=== PATIENT | female | born 1950 | race Caucasian/White ===

== ENCOUNTER → 2019-05-29 08:32 | Outpatient (BNVA) | payer MEDICARE, SELFPAY | PROVIDERS: Family Provider Family Medicine; PCP Family Medicine; Visit Provider Specialist | DX: M25.562 Pain in left knee (principal); Z47.1 Aftercare following joint replacement surgery; Z96.651 Presence of right artificial knee joint | CPT/HCPCS: 73560; 73565 ==

== ENCOUNTER → 2019-06-23 09:04 | Outpatient (BNVA) | payer MEDICARE, SELFPAY | PROVIDERS: Family Provider Family Medicine; PCP Family Medicine; Visit Provider Specialist | DX: M25.569 Pain in unspecified knee (principal); M17.0 Bilateral primary osteoarthritis of knee; Z96.651 Presence of right artificial knee joint | CPT/HCPCS: 81001; 87641 ==

== ENCOUNTER 2019-07-15 09:23 | Inpatient (IN) | payer MEDICARE, SELFPAY ==
[2019-07-03 11:16] VITALS: BMI 30.7
--- NOTE | 2019-07-03 11:23 | ECG_ITS ---
Measurements Intervals [place] Rate: 72 P: 54 KS: 133 QRS: 38 QRSD: 100 T: 62 QT: 358 QTc: 393 SINUS RHYTHM LOW QRS VOLTAGE IN PRECORDIAL LEADS [QRS DEFLECTION < 1.0 mV IN CHEST LEADS] Compared to ECG 01/02/2019 11:29:33 Low QRS voltage now present Sinus arrhythmia no longer present Electronically Signed On 07-03-2019 19:11:19 ALARM MECHANISM ADJUSTER by Esteban Knott M.D. [email or web address]
--- NOTE | 2019-07-03 13:22 | ANES.PREANE2 ---
Pre-Anesthetic Assessment Pre-Anesthetic Assessment: Height/Weight: Height 1.57 m Weight 76.204 kg Preop Diagnosis: Osteoarthritis left knee Proposed Procedure: Operation Date: 07/15/19 07:00 Proposed Procedures p Left Total Knee Arthroplasty 81314(Left) - Gisela Haque MD Familial anesthetic complications: none Social: Social History: No alcohol and No tobacco Exam: Pre-Anes Outpt Exam: alert, oriented x 3, clear to auscultation bilaterally and regular rate & rhythm Airway: Submandibular: WNL Cervical ROM: WNL MP: 1 Dentition: Other (teeth ok) History/ROS: No significant history except as noted Pulmonary: Pulmonary: None reported CV/HEM: CV/HEM: None reported : : None reported Hepatic: Hepatic: None reported GI: GI: GERD (occ) Metabolic: Metabolic: None reported Musc/skel: Musc/skel: OA/DJD Neuropsych: Neuropsych: TIA (2015) Anesthetic Plan: ASA status: 3 Anesthesia: Anesthesia Evaluation, Eval. for regional block (Left AC) and General Other: h/o PONV, need scop patch Risk of > 500 ml blood loss (7ml/kg in children): No PFSH Anesthesia PFSH: Medical History Hx of completed stroke Surgical History H/O breast surgery H/O: hysterectomy History of total right knee replacement Hx of cholecystectomy Family History Mother A-fib Hypertension Hyperlipidemia Sister Cancer Diabetes Stroke Grandmother Cancer Grandfather Cancer Father Hypertension Dementia Lung disease Family/Other Diabetes Brother Stroke Denies family history of CAD (coronary artery disease) Clotting disorder Psychiatric illness Chronic kidney disease (CKD) Suicide Anesthesia complication Bleeding disorder Family history of premature coronary artery disease Social History Smoking and tobacco status: never smoked Alcohol intake: never Current occupational status: employed Current occupation: Book keeper Data Anesthesia Cardiac Studies: No Data to Display
[2019-07-03 13:41] LABS: Basophils % 0.8 %; Eosinophils # 0.1 10^3/uL (0.0-0.8); Eosinophils % 2.4 %; Hematocrit 38.7 % (37.0-47.0); Hemoglobin 12.5 g/dL (11.5-15.3); Lymphocytes # 1.1 10^3/uL (0.8-4.8); Lymphocytes % 22.2 %; Mean Corpuscular HGB Conc 32.3 g/dL (30.0-36.0); Mean Corpuscular Hemoglobin 29.8 pg (28.0-34.0); Mean Corpuscular Volume 92.1 fL (81-99); Mean Platelet Volume 10.1 fL (7.4-10.4); Monocytes # 0.3 10^3/uL (0.2-0.9); Monocytes % 6.3 %; Neutrophils # 3.4 10^3/uL (1.8-7.7); Neutrophils % 68.1 %; Nucleated Red Blood Cells % 0 %; Platelet Count 256 10^3/cmm (130-400); Red Cell Distribution Width 13.8 % (12.1-15.1)
[2019-07-03 14:03] LABS: Blood Urea Nitrogen 12 mg/dL (8-23); Calcium 9.5 mg/dL (8.5-10.5); Carbon Dioxide 24 mmol/L (22-29); Chloride 102 mmol/L (98-107); Glomerular Filtration Rate 62.3 mL/min (90-130); Glucose 102 mg/dL (65-115); Osmolality Calculated 286 mOsm/kg (285-295); Sodium 140 mmol/L (136-145)
[2019-07-15] VITALS (21 sets, daily range): BP systolic 100–152; BP diastolic 67–90; PULSE 72–106; RESP 16–22; TEMP 36.3–37.2; O2SAT 96–100
[2019-07-15] MEDS: CELEcoxib 200 mg Capsule 400 MG PO (06:20)
[2019-07-15] MEDS: scopolamine 1.5 Patch 1 PATCH TRANSDERMA (06:20)
[2019-07-15] MEDS: sodium chloride 0.9% 1,000 ML 30 ML IV (06:24)
--- NOTE | 2019-07-15 06:49 | P.ANESUD_ITS ---
Pre-Anesthetic Update Pre-Anesthetic Assessment: Date of Surgery/Procedure: 07/15/19 Preop Melia gnosis: Osteoarthritis left knee Proposed Procedure: Operation Date: 07/15/19 07:00 Proposed Procedures p Left Total Knee Arthroplasty 23990(Left) - Gisela Haque MD Last Intake: Intake Last Liquid Date 07/14/19 Last Solid Date 07/14/19 Vitals: Temperature 97.7 F 07/15/19 05:41 Temperature Source Temporal Artery S can 07/15/19 05:41 Pulse Rate 74 07/15/19 05:41 Pulse Rhythm 07/15/19 05:41 Pulse Strength 3+ Normal 07/15/19 05:41 Respiratory Rate 18 07/15/19 05:41 Blood Pressure 152/90 07/15/19 05:41 Blood Pressure Josie n 110 07/15/19 05:41 Pulse Oximetry 98 07/15/19 05:41 Oxygen Delivery Me thod 07/15/19 05:41 Cardiac Studies: No Data to Display
--- NOTE | 2019-07-15 06:55 | W.PM.OPSUD ---
Surgery/Procedure H&P Update DATE OF PROCEDURE: July 15, 2019 DATE H&P PERFORMED: 06/23/19 H&P UPDATE INFORMATION: I have reviewed H&P completed within last 30 days, I have examined patient prior to procedure and [place] [facility] [place] PREOP DIAGNOSIS: Osteoarthritis left knee PLANNED PROCEDURE: Operation Date: 07/15/19 07:00 Proposed Procedures p Left Total Knee Arthroplasty 83863(Left) - Gisela Haque MD
[2019-07-15] MEDS: midazolam 1 mg/mL INJ 5 ML 5 MG IVP (06:59)
--- NOTE | 2019-07-15 06:59 | ANES.PROC ---
Anesthesia Procedures Procedure/Date: 07/15/19 Left adductor canal block Procedure Narrative: R&B's of left adductor canal block disc'd. Verbal and written consent obtained. Versed 2+1+1mg, Fentanyl 50ug. US utilized to identify left adductor canal space, JAMARI. Ropviciane 0.5% + Lido 2% with epi in 3:1 mixture in 5cc increments for a total of 40cc without problems/complications Nerve Block ^: Nerve Block 1: Main Anesthesia: general anesthesia Time Out Performed: Yes Consent: requested by attending/covering physician, from patient, risks and benefits reviewed and patient agrees to proceed Nerve block location: adductor canal Anesthesia monitors applied: pulse oximetry and oxygen Nerve block position: supine Anesthetic Used: lidocaine 2%, ropivicaine 0.5% and with epi Amount of anesthesia used (mL): 40 Ultrasound used to: other Nerve Stimulator Used?: No Interscalene/Femoral BLK: 2 stimuplex 22 g needle used for position and inplane approach and no vascular puncture identified Injection: neg aspiration of heme Patient Tolerated Procedure: well and no complications Complications: none
[2019-07-15] MEDS: fentaNYL 50 mcg/mL INJ 2mL 100 MCG IVP (07:00)
[2019-07-15] MEDS: ceFAZolin 1,000 mg SDV 1000 MG IRRIGATION ×2 (07:41)
[2019-07-15] MEDS: vancomycin 1,000 MG SDV 1000 MG XX (07:41)
--- NOTE | 2019-07-15 08:17 | SUR.OPER ---
Family Notified Of Patient's Status Via Phone.
--- NOTE | 2019-07-15 09:17 | W.PM.OPSUD ---
Surgery/Procedure H&P Update DATE OF PROCEDURE: July 15, 2019 DATE H&P PERFORMED: 07/14/19 H&P UPDATE INFORMATION: I have reviewed H&P completed within last 30 days, I have examined patient prior to procedure and H&P to be scanned into chart PREOP DIAGNOSIS: Osteoarthritis left knee PLANNED PROCEDURE: Operation Date: 07/15/19 07:00 Proposed Procedures p Left Total Knee Arthroplasty 66295(Left) - Gisela Haque MD
--- NOTE | 2019-07-15 09:41 | XR_ITS ---
WS: [id number] Left knee, 2 views, 07/15/2019 Clinical Data: s/p TKA Comparison: Left knee, 05/29/2019. Findings: The total left knee arthroplasty is in good position. The components are in good position. There are air-fluid levels in the knee from the recent surgery. There are anterior surgical alex. XR/XR knee LT 1-2V 31286 Impression: Left knee arthroplasty.
[2019-07-15] MEDS: fentaNYL 50 mcg/mL INJ 2mL IVP ×2 (09:45→09:50)
--- NOTE | 2019-07-15 09:48 | PM.OP ---
Operative Report Date of procedure: July 15, 2019 Pre-op Diagnosis: Osteoarthritis left knee Post-op diagnosis: same Post-op Findings: Severe degenerative osteoarthritis with osteophytes and significant varus deformity. Procedure Done: Left total knee arthroplasty utilizing the following components: The [place] triathlon total knee system with a size 3 posterior stabilized right press-fit femoral component, a size 3 Tritanium tibial component, press-fit, with a size 3 x 11 mm posterior stabilized insert, and an asymmetric 29 x 9 mm patella. Specimens removed/disposition: Bone, disposed of Pathology: none sent Surgeon: Gisela Haque Inside Sales Account Executive: [facility] OR technicians Anesthesia: General (intubated) Estimated blood loss (mL): 5 IV fluids (mL): 1,200 Urine output (mL): 200 Complications: None Findings: Severe degenerative osteoarthritis with large osteophytes. Varus deformity. Condition: stable Disposition: PACU (then to floor for postoperative rehabilitation, medical management, and pain management.) Brief History: This 69-year-old woman presented with complaints of severe left knee pain. She had large osteophytes circumferentially about the knee and severe degenerative osteoarthritic changes within all 3 compartments. After discussion, the patient wished to proceed with total knee arthroplasty. Procedure: The patient was brought to the operating theater, and after undergoing adequate general intubated anesthesia with supplemental regional block, the left lower extremity was prepped with Dura-Prep and draped in usual fashion following placement of a tourniquet high on the leg. The leg was then draped free. Following prepping and draping, the leg was exsanguinated, and the tourniquet was elevated to 300 mmHg for a total tourniquet time of 100 minutes. Prior to elevation of the tourniquet, but following exposure of the site of surgery, a surgical pause was performed. At the time of the surgical pause, we confirmed the site and side of surgery. Additionally, we confirmed the appropriate and timely administration of preoperative antibiotics, Ancef 2 g and transexemic acid 1 g. The availability of equipment was confirmed, and the patient's identity was verbalized as well. Following the surgical pause, an incision was made centering over the patella continuing proximally and distally as necessary to allow access to the knee joint. Dissection continued through skin and soft tissues using a scalpel. Hemostasis was obtained using electrocautery. The skin incision was followed by a median parapatellar arthrotomy. The leg was extended and the patella was everted. Following this, the leg was returned to flexed position. The distal femur was exposed and a drill hole was made in this for placement of the distal femoral jig. The distal femoral jig was set at 5? of valgus. The distal femoral cutting block was then placed in appropriate position, and an orly wing was used to confirm an appropriate amount of distal femur would be resected. The distal femoral resection was accomplished with 8 mm of bone being resected distally. After the distal femoral resection had been accomplished, the femur was measured and it measured a size 3. Medial lateral dimension also measured a size 3. A size 3 femoral cutting block was placed in position, and we were then able to accomplish the anterior, posterior and chamfer cuts. This jig was then removed and the notch guide was placed in position. With the notch guide in appropriate position, the notch was excised including resection of the anterior and posterior cruciate ligaments. This notch was to allow for the posterior stabilized femoral component. At this point, the femur was prepared and attention was directed to the proximal tibia. The posterior knee retractor was placed along with medial and lateral retractors. Further resection of the menisci were accomplished as we had better visualization. A complete meniscectomy was performed both medially and laterally with care being taken to protect the popliteus. Retractors were then placed so that the proximal tibia was well visualized. A drill hole was then made in the tibia for placement of the intramedullary guide. This guide was placed so that approximately 2 mm of bone would be resected from the deficient medial tibial plateau. The intramedullary guide was utilized supplemented with an extramedullary guide to assure appropriate alignment for the proximal tibial resection. The proximal tibial jig was then evaluated, pinned in position, and the proximal tibial resection was accomplished without difficulty. The jig was removed and the proximal tibia was measured. It measured a size 3. We then performed a trial reduction with an 9 mm insert into the size 3 tray. The femoral component was placed in position for the trial reduction, and the knee was placed through range of motion. The knee was felt to be slightly loose laterally compared to medially. Therefore, the medial release was accomplished and we were able to increase to an 11 mm insert. There was excellent stability with excellent varus-valgus alignment with appropriate patellar tracking. This was felt to be the appropriate size insert. There was full extension and flexion without lift off and the rotation of the tibia was marked. Alignment was checked from the hip to the ankle, and this was noted to be appropriate as well. Attention was then directed to the patella. The patella was measured with a caliper. We resected sufficient patella to leave approximately 14 mm of patella remaining. Measurements of the patella then indicated that a size asymmetric 29 mm x 9 mm was the appropriate patellar size. We then placed the jig to drill for the 3 pegs of the press-fit patella, and these drill holes were made without incident. A trial patella was then placed and the knee was placed through range of motion. The patella was noted to track nicely without evidence of subluxation. The femur was prepared for a press-fit femur by drilling 2 holes for the femoral pegs. All trial components were subsequently removed. The tibial tray was then pinned into position, and we broached the tibia for the stem of the tibial component. Subsequently, 4 drill holes were made for placement of the press-fit tibia. This was accomplished without difficulty. Care was taken to assure appropriate rotation of the tibia as well as appropriate position on the proximal tibia. The tibial tray was completely seated on the proximal tibia. Following broaching, the tibial guide was removed, and all surfaces were copiously irrigated. The surfaces were then dried and a bone plug was placed into the distal femur. Exparel was also injected at this point. The Tritanium tibia was impacted into position. The beaded femur was then impacted into position in a cementless fashion. The tibial insert was placed. The patella was pressed into position with a patellar clamp. The knee was irrigated with 20 mL of Betadine and 500 mL of normal saline, and this was allowed to remain in the knee for 3-4 minutes. The knee was then copiously irrigated and suctioned dry. Attention was then directed to closure. Closure was accomplished with 0 Vicryl in the fascial tissues, 2-0 Monocryl was used in the subcutaneous tissues, and the skin was closed with skin alex followed by Exofin. A sterile dressing was then placed consisting of Xeroform gauze, 4 x 4's, ABDs, sterile soft roll, and an Gigi wrap. The patient was returned the Recovery Room in a satisfactory condition. X-rays were obtained there. The patient will be discharged to the floor for postoperative rehabilitation and pain management. She will be placed in observation status for rehabilitation. There were no specimens and no complications.
--- NOTE | 2019-07-15 09:56 | SUR.PHASEI ---
pt placed on 3lnc as pt recieved pain meds earlier for lt knee pain after x rays, pt now sleepy with no s/s of pain vss sats now99% no distress noted lt knee dressing d/i.
--- NOTE | 2019-07-15 09:58 | SUR.PHASEI ---
DR CRUZ OUT TO WR AND TALKED WITH FAMILY PT FAMILYUP TO 2 NORTH TO WAIT, PT SLEEPS QUIETLY, FLOWERS TO DD YELLOW CLEAR URINE NOTED IN TUBING.
--- NOTE | 2019-07-15 10:25 | SUR.PHASEI ---
1015 PT TO FLOOR PER BED PT AWAKES ON ARRIVAL,COMPLAINS OF (LITTLE BIT OF PAIN) WHEN QUESTIONED BY NURSE PT ALERT TAKING SIPS OF SODA AT BEDSIDE DRESSING D/I BP 132/74, HR 101, RESP 18, SATS ON 3LNC 97%
[2019-07-15] MEDS: oxyCODONE-APAP 5-325 mg Tablet 1 TAB PO ×3 (11:03→22:05)
[2019-07-15] MEDS: CELEcoxib 200 mg Capsule PO ×2 (11:09→21:27)
[2019-07-15] MEDS: chlorhexidine gluconate 0.12% Btl 473 mL 30 ML MUCOUS MEM ×3 (13:02→21:27)
--- NOTE | 2019-07-15 16:30 | PM.MISC ---
Miscellaneous Note Purpose of Documentation: Postop visit Note: The patient was seen on the floor. She had a bit of orthostatic hypotension with her first attempt at ambulating. She will be given a small bolus of IV fluids and encouraged oral intake.
[2019-07-15] MEDS: lactated ringers 1,000 ML 80 ML IV (18:29)
[2019-07-15] MEDS: sennosides-docusate Tablet 2 TAB PO (18:31)
[2019-07-15] MEDS: calcium carbonate 500 mg Chew Tablet 1000 MG PO (18:31)
[2019-07-15] MEDS: iron polysaccharide complex 150 mg Capsule PO (18:31)
[2019-07-16] VITALS (7 sets, daily range): BP systolic 99–122; BP diastolic 59–75; PULSE 62–86; RESP 17–20; TEMP 36.9–37.3; O2SAT 96–99
[2019-07-16] MEDS: oxyCODONE 5 mg IR Tab/Cap PO (03:23)
[2019-07-16 03:52] LABS: Hematocrit 27.5 % (37.0-47.0); Hemoglobin 8.8 g/dL (11.5-15.3)
[2019-07-16] MEDS: lactated ringers 1,000 ML 80 ML IV ×2 (04:47→16:59)
[2019-07-16] MEDS: calcium carbonate 500 mg Chew Tablet 1000 MG PO ×2 (08:40→17:00)
[2019-07-16] MEDS: multivitamin therapeutic Tablet 1 TAB PO (08:40)
[2019-07-16] MEDS: sennosides-docusate Tablet 2 TAB PO ×2 (08:40→17:00)
[2019-07-16] MEDS: aspirin 325 mg EC Tablet PO (08:40)
[2019-07-16] MEDS: iron polysaccharide complex 150 mg Capsule PO ×2 (08:40→17:00)
[2019-07-16] MEDS: cholecalciferol (vitamin D3) 1,000 unit Tablet 1000 UNIT PO (08:40)
[2019-07-16] MEDS: chlorhexidine gluconate 0.12% Btl 473 mL 30 ML MUCOUS MEM ×3 (08:41→21:29)
[2019-07-16] MEDS: polyethylene glycol 3350 Pkt 17 gm PO (08:41)
[2019-07-16] MEDS: CELEcoxib 200 mg Capsule PO ×2 (08:54→21:28)
--- NOTE | 2019-07-16 09:28 | PM.PN ---
Subjective Subjective: Interval history: Patient is seen today. Her dressing is removed. She was sitting up in a chair, and she became hypotensive. She was returned to the bed, and her pressure stabilized. As this occurred last evening, we will obtain a medical consult. Medications: Reviewed: Yes Vitals/I&O/Wt Last Vital Signs Temp 99.2 F 07/16/19 07:24 Pulse 71 07/16/19 07:24 Resp 18 07/16/19 07:24 BP 112/72 07/16/19 07:24 Pulse Ox 99 07/16/19 07:24 07/15/19 07/16/19 07/16/19 22:59 06:59 14:59 Intake Total 680 / 2620 1224 / 3844 120 / 120 Output Total 1800 / 2205 200 / 200 Balance 680 / 2215 -576 / 1639 -80 / -80 Physical Exam Narrative: EXAM NARRATIVE: Patient is up in a chair during the examination. Dressing is removed uneventfully. The patient then has an episode where she states she became quite sleepy . She was returned to the bed with the physical therapist the nurse. Pressure stabilized at that point in time. Const: COMMON NORMALS: average body habitus, oriented x3 and alert GENERAL APPEARANCE: cooperative and comfortable ORIENTATION/CONSCIOUSNESS: Yes awake HENMT: COMMON NORMALS: normocephalic and head/scalp atraumatic HEAD & SCALP: normocephalic and atraumatic Eye: GENERAL EYE: normal appearance of both eyes Chest: COMMONS NORMALS: inspection of chest normal Resp: COMMON NORMALS: normal respiratory effort EFFORT & INSPECTION: Yes able to speak in complete sentences and Yes symmetric chest movement Extremity: LEFT LOWER EXTREMITY: Yes knee joint (The patient is sitting up in a chair. Her dressing is removed. There is no evidence of DVT or infection.) Left knee: Yes palpation (Leg is not tender to palpation.), Yes ROM (The patient lacks full extension, but she continues to improve in this regard. Flexion is not tested.) and Yes neurovascular exam (Intact) Neuro: COMMON NORMALS: oriented x3 SENSORIUM/ORIENTATION: Yes alert Psych: COMMON NORMALS: mental status grossly normal APPEARANCE: Yes grossly normal ATTITUDE: Yes calm and Yes engaged ATTENTION/CONCENTRATION: Yes attention grossly intact Skin: COMMON NORMALS: no rashes or lesions noted GENERAL SKIN EXAM: no rashes or lesions noted Urinary Catheter Management^: Weiss: Cath Placed During This Visit: yes Urethral Indwelling: Yes Reason for Continuing Indwelling Catheter: Perioperative Use in Selected Surgeries Urinary Catheter Date of Insertion: 07/15/19 Urinary Catheter Time of Insertion: 07:30 Data : 07/16/19 03:05 07/03/19 11:38 A&P Assessment and plan (1) History of total left knee replacement: Patient is status post left total knee arthroplasty. Last evening, she had a hypotensive episode while working with physical therapy. This occurred again this morning while sitting up in a chair. Secondary to this, we will ask her to be seen by the hospitalist service. Otherwise, she will continue to work with physical therapy as tolerated. Status: Acute Code(s): Z96.652 - Presence of left artificial knee joint Attestations Medical Necessity Statement*: Patient requires ongoing hospitalization secondary to her physical therapy requirements and associated hypotensive episodes with attempted ambulation. The patient was observation last evening, but she will be converted to an inpatient at this time secondary to these problems. Coding Level of Care Code Acute Grievance Coordinator for Dean Serna Diagnoses History of total left knee replacement Z96.652
--- NOTE | 2019-07-16 10:17 | PC.SOCIAL ---
Patient was given the [facility] Beneficiary Notification Letter. Signed and placed in chart.
--- NOTE | 2019-07-16 11:48 | PM.CONSULT ---
Providers/Reason For Consult Consulting Physican/Specialty*: Naye De Guzman DO, hospitalist Reason for Consult*: Orthostatic hypotension Attending Physician: Gisela Haque MD Primary Care Provider: Jeanette Alanis MD History of Present Illness History of Present Illness Wendy Tineo is a 69 year old female with a history of osteoarthritis and history of TIA that presented to the hospital for total knee arthroplasty. She reported that she had been feeling well prior to surgery with no recent health concerns. She reported that she has a history of TIAs and transient global amnesia, also reports a history of breast cancer and vaginal cancer. She stated that she was in her normal health prior to surgery with no concern for fever. Denies any recent medication changes. She denies any chest pain or shortness of breath. Denies any cough or sputum production. She was seen and evaluated this morning noted to have concern for dizziness upon standing and orthostatic hypotension. She has been given IV fluids. She is resting comfortably in bed at time of exam and reports that her symptoms have improved, not having any current dizziness, no chest pain, no shortness of breath. She stated that her symptoms started shortly after taking pain medication. She reported that after her recent knee replacement she went home and took only a couple of doses of the pain medication, and when she did she reported that she broke it in half. Review of Systems Const: Denies: fever or chills Eyes: Denies: change in vision ENMT: Denies: nasal congestion Card: Denies: chest pain, palpitations or edema Resp: Denies: shortness of breath, productive cough or coughing up blood GI: Denies: abdominal pain, nausea, vomiting, diarrhea, constipation, blood in stool or black tarry stool : Denies: painful urination or blood in urine Musc: Denies: muscle cramps Skin/Breast: Denies: rash or new lesion Neuro: Denies: headache or dizziness Psych: Denies: anxiety or depression Endo: Denies: excessive urination or hot flashes Adriano/Lymph: Denies: easy bruising or easy bleeding Meds/Allergies Home Medications and Allergies Home Medications Medication Instructions Recorded Confirmed Type sennosides 25 mg tablet 25 mg PO ONCE 05/29/19 07/15/19 History polyethylene glycol 3350 17 17 gm PO DAILY 06/23/19 07/15/19 History gram/dose oral powder Allergies Allergy/AdvReac Type Severity Reaction Status Date / Time erythromycin base Allergy unknown Verified 07/15/19 05:39 Current Medications Current Medications Generic Name Dose Route Start Last Admin Trade Name Geovanny PRN Reason Stop Dose Admin Aspirin 325 mg 07/16/19 09:00 07/16/19 08:40 Aspirin Ec PO 325 mg DAILY SARBJIT Administration Calcium Carbonate 1,000 mg 07/15/19 18:00 07/16/19 08:40 Tums PO 1,000 mg BID SARBJIT Administration Celecoxib 200 mg 07/15/19 10:14 07/16/19 08:54 Celebrex PO 200 mg Q12H SARBJIT Administration Chlorhexidine Gluconate 30 ml 07/15/19 13:00 07/16/19 08:41 Perigard MUCOUS MEM 30 ml QID SARBJIT Administration Lactated Ringer's 1,000 mls @ 80 mls/hr 07/15/19 17:00 07/16/19 04:47 Lactated Ringers IV 80 mls/hr .[id number] SARBJIT Administration Multivitamins Therapeutic 1 tab 07/16/19 09:00 07/16/19 08:40 Multivitamin Tab PO 1 tab DAILY SARBJIT Administration Mupirocin 1 applic 07/15/19 18:00 07/16/19 08:41 Bactroban NASAL 07/20/19 17:59 Not Given BID [facility] Protocol Polyethylene Glycol 17 gm 07/16/19 09:00 07/16/19 08:41 Miralax PO 17 gm DAILY SARBJIT Administration Polysaccharide Iron Complex 150 mg 07/15/19 18:00 07/16/19 08:40 Ferrex PO 150 mg BIDWM SARBJIT Administration Senna/Docusate Sodium 2 tab 07/15/19 18:00 07/16/19 08:40 Senna-S PO 2 tab BID SARBJIT Administration Vitamin D 1,000 unit 07/16/19 09:00 07/16/19 08:40 Vitamin D3 PO 1,000 unit DAILY SARBJIT Administration PFSH Acute PFSH: Medical History Hx of completed stroke Primary osteoarthritis of knees, bilateral Surgical History H/O breast surgery H/O: hysterectomy History of total right knee replacement Hx of cholecystectomy Family History Mother A-fib Hypertension Hyperlipidemia Sister Cancer Diabetes Stroke Grandmother Cancer Grandfather Cancer Father Hypertension Dementia Lung disease Family/Other Diabetes Brother Stroke Denies family history of CAD (coronary artery disease) Clotting disorder Psychiatric illness Chronic kidney disease (CKD) Suicide Anesthesia complication Bleeding disorder Family history of premature coronary artery disease Social History Smoking and tobacco status: never smoked Alcohol intake: never Current occupational status: employed Current occupation: Book keeper Vitals/I&O/Wt Last Vital Signs Temp 98.5 F 07/16/19 11:15 Pulse 86 07/16/19 11:15 Resp 18 07/16/19 11:15 BP 122/75 07/16/19 11:15 Pulse Ox 98 07/16/19 11:15 07/15/19 07/16/19 07/16/19 22:59 06:59 14:59 Intake Total 680 / 2620 1224 / 3844 120 / 120 Output Total 1800 / 2205 200 / 200 Balance 680 / 2215 -576 / 1639 -80 / -80 Physical Exam Const: COMMON NORMALS: oriented x3 and alert GENERAL APPEARANCE: cooperative ORIENTATION/CONSCIOUSNESS: Yes awake, Yes oriented to person, Yes oriented to place and Yes oriented to time HENMT: COMMON NORMALS: normocephalic and head/scalp atraumatic HEAD & SCALP: normocephalic and atraumatic Eye: COMMON NORMALS: PERRL PUPIL: Yes PERRL Neck/C-Spine: COMMON NORMALS: supple GENERAL: Yes normal visual inspection Resp: COMMON NORMALS: normal respiratory effort and clear to auscultation bilaterally EFFORT & INSPECTION: Yes able to speak in complete sentences AUSCULTATION: clear to auscultation bilaterally, no rhonchi and no wheezes Cardio: COMMON NORMALS: regular rate, regular rhythm and no murmurs RATE: regular rate RHYTHM: regular rhythm GI: COMMON NORMALS: soft to palpation and non-tender INSPECTION: No abdominal distension AUSCULTATION: Yes normoactive bowel sounds PALPATION: Yes soft Extremity: COMMON NORMALS: no calf tenderness NARRATIVE EXTREMITY EXAM: Postoperative dressing in place in the left knee, no lower extremity edema Neuro: COMMON NORMALS: oriented x3, CN's II-XII intact bilaterally, moves all extremities and no focal motor deficits SENSORIUM/ORIENTATION: Yes alert, Yes oriented to person, Yes oriented to place and Yes oriented to time SPEECH: speech normal Psych: COMMON NORMALS: mental status grossly normal and cooperative Skin: COMMON NORMALS: no rashes or lesions noted GENERAL SKIN EXAM: no rashes or lesions noted Urinary Catheter Management^: Weiss: Cath Placed During This Visit: no A&P Assessment and plan (1) History of total left knee replacement: Postop day 1 left total knee arthroplasty Followed by Dr. Haque Status: Acute Code(s): Z96.652 - Presence of left artificial knee joint Additional A&P Information Orthostatic hypotension this morning: Seem to be after dose of pain medication. Patient reports that she does not have a significant amount of pain in the left lower extremity. Due to her having concern with pain medication will discontinue Percocet and start on tramadol. Patient also receiving IV fluids at this time, will continue. Blood pressure remains within normal limits at this time and she denies any symptoms of lightheadedness or dizziness. We will continue to monitor closely with slow transfers. Patient's hemoglobin also decreased from 12.5-8.8, likely from surgery, no evidence of any continued heavy bleeding. We will recheck hemoglobin and consider transfusion if indicated, however not indicated at this time. History of TIA: Patient is not on aspirin or statin medication, reported as complex. Recommend close follow-up with primary care provider. No focal neurologic deficits at this time DVT prophylaxis: Aspirin 325 mg twice daily Diet: Regular Consult Attestations Medical Necessity Statement: Patient requires hospitalization due to history of TIA status post total knee arthroplasty with postoperative anemia and orthostatic hypotension Coding Level of Care Code Acute Slate Handler for Dean Serna Diagnoses History of total left knee replacement Z96.652
--- NOTE | 2019-07-16 11:55 | ECG_ITS ---
Measurements Intervals [place] Rate: 68 P: 53 WI: 133 QRS: 16 QRSD: 104 T: 33 QT: 363 QTc: 388 SINUS RHYTHM Compared to ECG 07/03/2019 11:49:04 No significant changes Electronically Signed On 07-16-2019 16:50:58 OPERATIONS LOGISTICS ANALYST by Malcom Celis M.D. [id number]
--- NOTE | 2019-07-16 12:28 | ANE.PACU2 ---
 Inpatient post-anesthesia follow up: Airway intact: Yes Vital signs: Temperature 98.5 F Pulse Rate 86 Respiratory Rate 18 Blood Pressure 122/75 Pulse Oximetry 98 Oxygen Delivery Me thod Room Air Oxygen Flow Rate 2.5 Fraction of Inspir ed Oxygen Hydration adequate: Yes Nausea and vomiting: No Pain level: 3 Mental status: Baseline
[2019-07-16] MEDS: TRAMadol 50 mg Tablet PO ×2 (14:11→20:27)
--- NOTE | 2019-07-16 14:31 | PC.OT ---
OT EVALUATION ORDERS RECEIVED. PATIENT ABLE TO DEMONSTRATE ABILITY TO DRESS LB WITH NO ASSISTANCE REQUIRED. NO FURTHER SKILLED OT AT THIS TIME.
--- NOTE | 2019-07-16 16:52 | NUR.SHIFT ---
PATIENT GOT UP WITH PHYSICAL THERAPY THIS AM. PATIENT BECAME HYPOTENSIVE. BP 70'S/40'S. DR. CRUZ IN THE ROOM REMOVING PATIENT'S SURGICAL DRESSING AND PATIENT STOPPED TALKING AND HAD EYES CLOSED. DR. CRUZ STERNAL RUBBED PATIENT AND SHE OPENED HER EYES. BRYAN VICENTE ALONG WITH THIS NURSE GOT PATIENT BACK TO BED WITH FEET ELEVATED. BLOOD PRESSURE IMMEDIATELY WAS BACK TO 130'S/80'S. PATIENT JUST FELT WEAK AT THAT TIME BUT WAS ALERT AND ORIENTED. PATIENT'S MEDICATIONS REVIEWED AND HOSPITALIST CONSULTED. PAIN MEDIATION CHANGED TO TRAMADOL AND PATIENT IS TOLERATING WELL AND HAVING GOOD PAIN CONTROL. BLOOD PRESSURE MONITORED CLOSELY THROUGHOUT SHIFT AND HAS BEEN NORMAL. PATIENT HAS BEEN UP SEVERAL TIMES WITHOUT DIFFICULTY. PAIN WELL CONTROLLED. NO COMPLAINTS AT THIS TIME.
[2019-07-17] VITALS: BP 112/61; PULSE 70; RESP 18; TEMP 36.7; O2SAT 95
[2019-07-17 04:03] VITALS: BP 101/65; PULSE 82; RESP 17; TEMP 37.3; O2SAT 92
[2019-07-17] MEDS: lactated ringers 1,000 ML 80 ML IV (04:40)
[2019-07-17 07:14] VITALS: BP 124/72; PULSE 82; RESP 20; TEMP 36.8; O2SAT 96
[2019-07-17] MEDS: sennosides-docusate Tablet 2 TAB PO (08:05)
[2019-07-17] MEDS: chlorhexidine gluconate 0.12% Btl 473 mL 30 ML MUCOUS MEM ×2 (08:05→12:44)
[2019-07-17] MEDS: polyethylene glycol 3350 Pkt 17 gm PO (08:05)
[2019-07-17] MEDS: aspirin 325 mg EC Tablet PO (08:05)
[2019-07-17] MEDS: TRAMadol 50 mg Tablet PO (08:05)
[2019-07-17] MEDS: iron polysaccharide complex 150 mg Capsule PO (08:05)
[2019-07-17] MEDS: multivitamin therapeutic Tablet 1 TAB PO (08:05)
[2019-07-17] MEDS: calcium carbonate 500 mg Chew Tablet 1000 MG PO (08:05)
[2019-07-17] MEDS: cholecalciferol (vitamin D3) 1,000 unit Tablet 1000 UNIT PO (08:05)
[2019-07-17] MEDS: CELEcoxib 200 mg Capsule PO (08:06)
--- NOTE | 2019-07-17 11:15 | P.PN_ITS ---
Subjective Subjective: Interval history: Patient awake sitting up in bed at time of exam today. She denied any concerns. No chest pain, no shortness of breath, no lightheadedness or dizziness. Reported that pain is well controlled with change in medication. Medications: Reviewed: Yes Vitals/I&O/Wt Last Vital Signs Temp 98.3 F 07/17/19 07:14 Pulse 82 07/17/19 07:14 Resp 20 H 07/17/19 07:14 BP 124/72 07/17/19 07:14 Pulse Ox 96 07/17/19 07:14 07/16/19 07/17/19 07/17/19 22:59 06:59 14:59 Intake Total 1070 / 1190 1366.667 / 2556.667 240 / 240 Output Total 550 / 750 1050 / 1800 Balance 520 / 440 316.667 / 756.667 240 / 240 Physical Exam 2 Const: COMMON NORMALS: oriented x3 and alert GENERAL APPEARANCE: cooperative ORIENTATION/CONSCIOUSNESS: Yes awake, Yes oriented to person, Yes oriented to place and Yes oriented to time HENMT: COMMON NORMALS: normocephalic and head/scalp atraumatic HEAD & SCALP: normocephalic and atraumatic Eye: COMMON NORMALS: PERRL PUPIL: Yes PERRL Neck/C-Spine: COMMON NORMALS: supple GENERAL: Yes normal visual inspection Resp: COMMON NORMALS: normal respiratory effort and clear to auscultation bilaterally EFFORT & INSPECTION: Yes able to speak in complete sentences AUSCULTATION: clear to auscultation bilaterally, no rhonchi and no wheezes Cardio: COMMON NORMALS: regular rate, regular rhythm and no murmurs RATE: regular rate RHYTHM: regular rhythm GI: COMMON NORMALS: soft to palpation and non-tender INSPECTION: No abdominal distension AUSCULTATION: Yes normoactive bowel sounds PALPATION: Yes soft Extremity: COMMON NORMALS: no calf tenderness NARRATIVE EXTREMITY EXAM: Postoperative dressing in place in the left knee, no lower extremity edema Neuro: COMMON NORMALS: oriented x3, CN's II-XII intact bilaterally, moves all extremities and no focal motor deficits SENSORIUM/ORIENTATION: Yes alert, Yes oriented to person, Yes oriented to place and Yes oriented to time SPEECH: speech normal Psych: COMMON NORMALS: mental status grossly normal and cooperative Skin: COMMON NORMALS: no rashes or lesions noted GENERAL SKIN EXAM: no rashes or lesions noted Urinary Catheter Management^: Weiss: Cath Placed During This Visit: yes Urethral Indwelling: Yes Reason for Continuing Indwelling Catheter: Perioperative Use in Selected Surgeries Urinary Catheter Date of Insertion: 07/15/19 Urinary Catheter Time of Insertion: 07:30 Data : 07/16/19 03:05 07/03/19 11:38 A&P Assessment and plan (1) History of total left knee replacement: Postop day 2 left total knee arthroplasty Followed by Dr. Haque Status: Acute Code(s): Z96.652 - Presence of left artificial knee joint Additional A&P Information Orthostatic hypotension this morning: Resolved with IV fluids History of TIA: Patient is not on aspirin or statin medication, reported as complex. Recommend close follow-up with primary care provider. No focal neurologic deficits at this time DVT prophylaxis: Aspirin 325 mg twice daily Diet: Regular Attestations Medical Necessity Statement*: Likely discharge today, will follow-up with orthopedic surgery. Coding Level of Care Code Acute Restaurant Shift Leader for Dean Serna Diagnoses History of total left knee replacement Z96.652
[2019-07-17 11:45] VITALS: BP 110/70; PULSE 82; RESP 18; TEMP 35.7; O2SAT 96
[2019-07-17 12:03] VITALS: BP 121/76; PULSE 76; RESP 16; TEMP 36.9; O2SAT 96
--- NOTE | 2019-07-17 12:12 | PC.CHAP ---
Pastoral Care Encounter/Spiritual Assessment Type of Contact [] Declined brake engineer visit [] Patient/Family/Request visit [] Outpatient visit [] Follow-up visit [] Physician referral [] Code/Alert [x] Routine visit [] Staff referral [] Actively dying [] Patient sleeping [] Family support [] [] Out of room [] Palliative care [] [] Receiving care in room [] Pre-surgical visit [] Trauma [] Long length of stay [] ICU visit [] Other: Relational/Emotional Strength [x] Patient feels connected with others/family/visitors/staff [] Distress [] Loneliness/isolation [] Abandonment Spirituality of Patient [x] Person of Brittani [x] Attends Amish of their Brittani [x] Believes in Prayer [x] Reads Bible or Muslim materials [] There are Spiritual issues to be addressed Window Glazier Helper Interventions [x] Prayer [x] Active listening [x] Non-anxious presence []x Spiritual/emotional support [] Crisis/trauma care [x] Spiritual counseling [] Bereavement support [] Provided bereavement packet [] Provided Bible/devotional materials [] Provided toy/stuffed animal, coloring book to patient or family member [] Provided Communion [] Anointing/[place] [] Salvation [] Completed spiritual assessment [] Other: Impact on Illness or Injury [] Angry [] Fearful [] Anxious [] Often cries [] Exhaustion [] Unable to work [] Unable to attend oriental orthodox [] Unable to walk/stand [] Unable to read [] Unable to drive [] Unable to eat/drink [] Unable to sleep [] Unable to be with family [] Patient intubated [x] Other: Summary Patient was asleep and attended by her [employer]. Marko reported that he and Sharri are born again Christians. Time spent with patient 5-minutes
--- NOTE | 2019-07-17 14:13 | PM.DCS ---
Discharge Providers Date of Admission: 07/15/19 to Inpatient Observation with conversion to Inpatient Date of Discharge: July 17, 2019 Attending Provider at Admission: Gisela Haque MD Attending Provider at Discharge: Gisela Haque MD Primary Care Provider: Jeanette Alanis MD Diagnoses at Discharge Discharge Diagnosis (1) History of total left knee replacement: Status: Acute Problem details: Procedure: Left total knee arthroplasty utilizing the following components: The Prezi triathlon total knee system with a size 3 posterior stabilized right press-fit femoral component, a size 3 Tritanium tibial component, press-fit, with a size 3 x 11 mm posterior stabilized insert, and an asymmetric 29 x 9 mm patella. Reason for Visit Reason for Visit: Reason For Visit: Primary osteoarthritis left knee Hospital Course Hospital Course: The patient was admitted following surgery. She initially was brought to the floor as an observation patient. On the night following her surgical intervention, she did have diminished blood pressure and concerns with pain. She had a block as well. The patient worked with physical therapy the following morning. When they got her up, she became slightly hypotensive. And they returned her to bed. I saw her in her room sitting up in a chair. While I was in the room, she had another event of hypotension requiring return to bed. At that time, we had the hospitalist team become involved. She had received a bolus with minimal result. She did seem to associate the hypotension with pain medication however. She was evaluated by the hospitalist service. There is no need for interventions. Pain medication was changed to tramadol from oxycodone. The patient worked with physical therapy and did well. On the second postoperative day, she was ready for discharge to home. Discharge Summary: Patient is discharged home with home health following inpatient admission. Physical Exam Narrative: EXAM NARRATIVE: The patient is seen in the room with the nurse. Dressing is changed. Her wound is benign. There is no evidence of DVT. There are no concerns regarding her wound. She feels she is ready for discharge home, and she is awake and alert. Her is there with her. Const: COMMON NORMALS: average body habitus, oriented x3 and alert GENERAL APPEARANCE: cooperative and comfortable ORIENTATION/CONSCIOUSNESS: Yes awake HENMT: COMMON NORMALS: normocephalic and head/scalp atraumatic HEAD & SCALP: normocephalic and atraumatic Eye: GENERAL EYE: normal appearance of both eyes Chest: COMMONS NORMALS: inspection of chest normal Resp: COMMON NORMALS: normal respiratory effort EFFORT & INSPECTION: Yes able to speak in complete sentences and Yes symmetric chest movement Extremity: LEFT LOWER EXTREMITY: Yes knee joint Left knee: Yes inspection, Yes palpation (Minimal discomfort), Yes ROM (Working with physical therapy) and Yes neurovascular exam (Intact) Neuro: COMMON NORMALS: oriented x3 SENSORIUM/ORIENTATION: Yes alert Psych: COMMON NORMALS: mental status grossly normal APPEARANCE: Yes grossly normal ATTITUDE: Yes calm and Yes engaged ATTENTION/CONCENTRATION: Yes attention grossly intact Skin: COMMON NORMALS: no rashes or lesions noted GENERAL SKIN EXAM: no rashes or lesions noted Urinary Catheter Management^: Weiss: Cath Placed During This Visit: yes, but has since been removed by the nurse Urethral Indwelling: No Reason for Continuing Indwelling Catheter: Perioperative Use in Selected Surgeries Urinary Catheter Date of Insertion: 07/15/19 Urinary Catheter Time of Insertion: 07:30 Date Urinary Catheter Removed: 07/16/19 Time Urinary Catheter Discontinued: 06:59 Discharge Data Data Completed and Pending: Completed Studies During Hospitalization Category Date Time Status XR knee LT 1-2V 7 3560 Stat Exams 07/15/19 09:41 Completed Vitals: Last Vital Signs Temp 98.5 F 07/17/19 12:03 Pulse 76 07/17/19 12:03 Resp 16 07/17/19 12:03 BP 121/76 07/17/19 12:03 Pulse Ox 96 07/17/19 12:03 Discharge Plan Discharge Condition: Stable Prescriptions: Continued sennosides 25 mg tablet 25 mg PO ONCE RF: 0 polyethylene glycol 3350 [Miralax] 17 gram/dose powder 17 gm PO DAILY RF: 0 Discharge Orders: Discharge Order (Routine); Ordered 07/15/19 Ordered By: Gisela Haque Referrals: [facility] [place] [facility] ([facility]) [Outside] Gisela Haque MD [Physician] - 08/01/19 2:00 pm (July 31 at 14:00 will be a nurse visit and follow-up again please on August 03 at 1:15 PM with me for x-rays and evaluation.) Discharge Diet: Advance as tolerated and Usual diet Discharge Activity: Increase activity as tolerated, Use walker/crutches as instructed and As per PT/OT instructions Patient Instructions: Laxative, Stimulant (By mouth), Polyethylene Glycol 3350 (By mouth), Total Knee Replacement (DC) Activity Restrictions/Additional Instructions: Range of motion, strengthening, gait training per PT. Keep wound covered until dressings are changed. May change PRN, but secondary to alex, wound should stay covered. Discharge Attestations Time Spent in Discharge Care*: greater than 30 min Specific Discharge Activities: Specific discharge activities: educating patient, discussing with egg caser/social workers/dc planners and documenting/other paperwork Status at Discharge: Cognitive status at discharge: cognitively intact, Behavioral status at discharge: cooperative, Functional status at discharge: uses cane/walker Overall status at discharge: patient is progressing back to baseline Quality Metrics Clinical Quality Measures During this hospital stay, did patient experience: None Coding Level of Care Code Acute Primer Inspector for Dean Fwcitlalli Exam Comprehensive Diagnoses History of total left knee replacement Z96.652
[2019-07-17 14:44] VITALS: BP 121/76; PULSE 76; RESP 16; TEMP 36.9; O2SAT 96
== END 2019-07-17 15:04 | disposition home health service (06) | DRG 470 ==
LOC: MEDSURG 09:23
PROVIDERS: Admitting Provider Specialist; Family Provider Family Medicine; PCP Family Medicine; Visit Provider Specialist
PROC: 0SRD0JA Replacement of Left Knee Joint with Synthetic Substitute, Uncemented, Open Approach (ICD-10-PCS; CPT 27447; principal; 2019-07-15 07:00)
DX: M17.12 Unilateral primary osteoarthritis, left knee (principal); Z96.652 Presence of left artificial knee joint; I95.9 Hypotension, unspecified; K21.9 Gastro-esophageal reflux disease without esophagitis; Z86.73 Personal history of transient ischemic attack (TIA), and cerebral infarction without residual deficits; Z79.82 Long term (current) use of aspirin; Z79.899 Other long term (current) drug therapy
CPT/HCPCS: 12345; 36415; 51702; 73560; 80048; 85014; 85018; 85025; 93005; 96365; 96374; 96375; 97110; 97116; 97162; 97530; C1776; C9290; G0378; J0131; J0690; J1100; J2001; J2250; J2405; J2704; J2795; J3010; J3370; J3490; J7030

== ENCOUNTER → 2019-08-04 13:42 | Outpatient (BNVA) | payer MEDICARE, SELFPAY | PROVIDERS: Family Provider Family Medicine; PCP Family Medicine; Visit Provider Specialist | DX: Z96.653 Presence of artificial knee joint, bilateral (principal) | CPT/HCPCS: 73560; 73565 ==

== ENCOUNTER 2019-09-24 11:58 | Outpatient (CLI) | payer MEDICARE, SELFPAY ==
[2019-09-24] MEDS: iohexol 300 mg/mL 50 mL Btl PO (13:33)
--- NOTE | 2019-09-24 14:00 | CT_ITS ---
WS: [id number] CT ABDOMEN PELVIS TECHNIQUE: Noncontrast CT of the abdomen and pelvis with coronal and sagittal reformatted images. CLINICAL INFORMATION: Abd pain 3 week, hx cancer COMPARISON: None. DLP: 1076.[address] scans at [facility] use at least one of these dose optimization techniques: automat ed exposure control; mA and/or kV adjustment per patient size (includes targeted exams where dose is matched to clinical indication); or iterative reconstruction. FINDINGS: Prior postoperative changes cholecystectomy and hysterectomy. Prior appendectomy. Left breast implant . Noncontrast liver is otherwise normal in appearance. Noncontrast spleen appears normal. Normal GE j unction. Lung bases are well aerated. Noncontrast pancreas is normal. Normal caliber abdominal aorta. Mild aortic calcification. Small amount of free fluid in the cul-de-sac. No evidence of small or large bowel obstruction. Normal sigmoid colon. A few diverticuli. Mild fecal retention in the right colon and transverse colon. No evidence of small bowel obstruction. A few air- fluid levels in normal caliber small bowel in the ventral abdomen Prior ventral abdominal wall hernia repair. No recurrent hernia. CT/CT abdomen pelvis wo con [id number] IMPRESSION: 1. Mild fecal retention in the right colon and transverse colon. No evidence o f obstruction. 2. Prior postoperative changes ventral abdominal wall hernia repair. No eviden ce of recurrent hernia. 3. A few air-fluid levels in normal caliber small bowel loops in the anterior abdomen. No evidence of high-grade obstruction. 4. Small amount of free fluid in the cul-de-sac. Normal sigmoid colon. 5. Normal caliber abdominal aorta. Mild aortic calcification. 6. Prior cholecystectomy. Prior hysterectomy and appendectomy. 7. Noncontrast kidneys are normal. No hydronephrosis.
== END 2019-09-24 11:59 | disposition home or self-care (01) ==
LOC: RADWPI 12:03
PROVIDERS: Family Provider Family Medicine; PCP Family Medicine; Visit Provider Family Medicine
DX: R10.9 Unspecified abdominal pain (principal); Z85.9 Personal history of malignant neoplasm, unspecified; K59.00 Constipation, unspecified; I70.0 Atherosclerosis of aorta
CPT/HCPCS: 74176; Q9967

== ENCOUNTER 2019-10-23 07:33 | Day surgery (SDC) | payer MEDICARE, SELFPAY ==
[2019-10-21 10:16] VITALS: BMI 30.2
[2019-10-23 08:10] VITALS: BP 155/81; PULSE 91; RESP 18; TEMP 36.8; O2SAT 97
[2019-10-23] MEDS: sodium chloride 0.9% 1,000 ML 30 ML IV (08:10)
--- NOTE | 2019-10-23 09:08 | ANES.PREANE2 ---
Pre-Anesthetic Assessment Pre-Anesthetic Assessment: Height/Weight: Height 1.57 m Weight 74.843 kg Temp Pulse Resp BP Pulse Ox 98.2 F 91 18 155/81 97 10/23/19 08:10 10/23/19 08:10 10/23/19 08:10 10/23/19 08:10 10/23/19 08:10 Preop Diagnosis: Chronic constipation Proposed Procedure: Operation Date: 10/23/19 09:30 Proposed Procedures p Colonoscopy(Not Applicable) - Zachariah Orr MD Was Beta Naz taken within 24 hours: N/A Last intake: Intake Last Liquid Date 10/22/19 Last Liquid Time 23:00 Last Solid Date 10/21/19 Last Solid Time 23:00 Social: Social History: No alcohol and No tobacco Exam: Pre-Anes Outpt Exam: alert, oriented x 3, clear to auscultation bilaterally and regular rate & rhythm Airway: Submandibular: WNL Cervical ROM: WNL MP: 2 Dentition: Full History/ROS: No significant complaints Pulmonary: Pulmonary: None reported CV/HEM: CV/HEM: None reported : : None reported Hepatic: Hepatic: None reported GI: GI: GERD Metabolic: Metabolic: None reported Musc/skel: Musc/skel: None reported Neuropsych: Neuropsych: TIA (No residual effects; occured 8 years ago;no active symptoms) Anesthetic Plan: ASA status: 2 Anesthesia: MAC PFSH Anesthesia PFSH: Medical History GERD with esophagitis History of bilateral breast cancer History of cancer of vagina Hx of completed stroke Primary osteoarthritis of knees, bilateral Surgical History (Updated 10/03/19 @ 16:35 by Zachariah Orr MD) H/O breast surgery H/O: hysterectomy History of appendectomy History of colonoscopy History of esophagogastroduodenoscopy (EGD) History of total right knee replacement Right total knee arthroplasty utilizing the following components: The [employer] triathlon total knee system with a size 4 posterior stabilized right press-fit femoral component, a size 3 Tritanium tibial component, press-fit, with a size 3 x 11 mm posterior stabilized insert, and an asymmetric 29 x 9 mm patella Hx of cholecystectomy Family History Mother A-fib Hypertension Hyperlipidemia Sister Cancer Diabetes Stroke Grandmother Cancer Grandfather Cancer Father Hypertension Dementia Lung disease Family/Other Diabetes Brother Stroke Denies family history of CAD (coronary artery disease) Clotting disorder Psychiatric illness Chronic kidney disease (CKD) Suicide Anesthesia complication Bleeding disorder Family history of premature coronary artery disease Social History Smoking and tobacco status: never smoked Alcohol intake: never Current occupational status: employed Current occupation: Book keeper History of recent travel: No Current gender identity: Female Data Anesthesia Cardiac Studies: No Data to Display
--- NOTE | 2019-10-23 09:51 | W.PM.OPSUD ---
Surgery/Procedure H&P Update DATE OF PROCEDURE: October 23, 2019 DATE H&P PERFORMED: 10/03/19 H&P UPDATE INFORMATION: I have reviewed H&P completed within last 30 days, I have examined patient prior to procedure, No changes to prior documentation and Changes to prior documentation as noted here PREOP DIAGNOSIS: Chronic constipation PLANNED PROCEDURE: Operation Date: 10/23/19 09:30 Proposed Procedures p Colonoscopy(Not Applicable) - Zachariah Orr MD
[2019-10-23 10:10] VITALS: BP 135/82; PULSE 80; RESP 16; TEMP 36.7; O2SAT 100
--- NOTE | 2019-10-23 10:14 | ANE.PACU2 ---
Inpatient post-anesthesia follow up: Airway intact: Yes Vital signs: Temperature 98.2 F Pulse Rate 91 Respiratory Rate 18 Blood Pressure 155/81 Pulse Oximetry 97 Oxygen Delivery Me thod Room Air Oxygen Flow Rate Fraction of Inspir ed Oxygen Hydration adequate: Yes Nausea and vomiting: No Pain level: 1 Mental status: Baseline
[2019-10-23 10:29] VITALS: BP 134/91; PULSE 84; RESP 17; TEMP 36.7; O2SAT 100
== END 2019-10-23 11:00 | disposition home or self-care (01) ==
PROVIDERS: PCP Family Medicine; Visit Provider Surgery
PROC: 0DJD8ZZ Inspection of Lower Intestinal Tract, Via Natural or Artificial Opening Endoscopic (ICD-10-PCS; CPT 45378; principal; 2019-10-23 09:30)
DX: K59.09 Other constipation (principal); K57.90 Diverticulosis of intestine, part unspecified, without perforation or abscess without bleeding; K21.9 Gastro-esophageal reflux disease without esophagitis; Z86.73 Personal history of transient ischemic attack (TIA), and cerebral infarction without residual deficits; Z85.3 Personal history of malignant neoplasm of breast
CPT/HCPCS: 12345; 45378; J2704; J7030

== ENCOUNTER → 2019-10-27 10:28 | Outpatient (BNVA) | payer MEDICARE, SELFPAY | PROVIDERS: PCP Family Medicine; Visit Provider Specialist | DX: Z96.652 Presence of left artificial knee joint (principal); Z48.89 Encounter for other specified surgical aftercare | CPT/HCPCS: 73560; 73565 ==

== ENCOUNTER → 2020-02-02 09:03 | Outpatient (BNVA) | payer MEDICARE, SELFPAY | PROVIDERS: PCP Family Medicine; Visit Provider Specialist | DX: Z96.652 Presence of left artificial knee joint (principal); Z96.651 Presence of right artificial knee joint | CPT/HCPCS: 73560; 73565 ==

== ENCOUNTER → 2020-05-03 11:05 | Outpatient (BNVA) | payer MEDICARE, SELFPAY | PROVIDERS: PCP Family Medicine; Referring Provider Nurse Practitioner Family; Visit Provider Nurse Practitioner Family | DX: Z20.828 Contact with and (suspected) exposure to other viral communicable diseases (principal) | CPT/HCPCS: 87635 ==

== ENCOUNTER → 2021-01-12 08:46 | Outpatient (BNVA) | payer MEDICARE, SELFPAY | PROVIDERS: PCP Family Medicine; Visit Provider Family Medicine | DX: F41.8 Other specified anxiety disorders (principal); R53.83 Other fatigue; K21.00 Gastro-esophageal reflux disease with esophagitis, without bleeding; K59.04 Chronic idiopathic constipation; R53.82 Chronic fatigue, unspecified; R03.0 Elevated blood-pressure reading, without diagnosis of hypertension; I16.0 Hypertensive urgency; Z85.44 Personal history of malignant neoplasm of other female genital organs; Z13.6 Encounter for screening for cardiovascular disorders; Z13.1 Encounter for screening for diabetes mellitus | CPT/HCPCS: 80053; 80061; 82607; 82652; 84443; 85025 ==

== ENCOUNTER → 2021-08-31 08:57 | Outpatient (BNVA) | payer MEDICARE, SELFPAY | PROVIDERS: PCP Family Medicine; Visit Provider Family Medicine | DX: I10 Essential (primary) hypertension (principal); E53.8 Deficiency of other specified B group vitamins; K59.04 Chronic idiopathic constipation | CPT/HCPCS: 80048 ==

== ENCOUNTER → 2022-03-02 08:57 | Outpatient (BNVA) | payer MEDICARE, SELFPAY | PROVIDERS: PCP Family Medicine; Visit Provider Family Medicine | DX: I10 Essential (primary) hypertension (principal); F41.8 Other specified anxiety disorders; E53.8 Deficiency of other specified B group vitamins; Z13.6 Encounter for screening for cardiovascular disorders; Z13.220 Encounter for screening for lipoid disorders; R53.83 Other fatigue; Z85.44 Personal history of malignant neoplasm of other female genital organs; R10.2 Pelvic and perineal pain; R19.8 Other specified symptoms and signs involving the digestive system and abdomen | CPT/HCPCS: 80053; 80061; 82607 ==

== ENCOUNTER → 2022-03-13 09:27 | Outpatient (BNVA) | payer MEDICARE, SELFPAY | PROVIDERS: PCP Family Medicine; Visit Provider Surgery | DX: R19.8 Other specified symptoms and signs involving the digestive system and abdomen (principal); R10.9 Unspecified abdominal pain | CPT/HCPCS: 99203 ==

== ENCOUNTER 2022-03-16 11:45 | Outpatient (CLI) | payer MEDICARE, SELFPAY ==
--- NOTE | 2022-03-16 13:30 | CT_ITS ---
WS: [id number] CT ABDOMEN PELVIS TECHNIQUE: Contrast-enhanced CT of the abdomen and pelvis with coronal and sagittal reformatted image s. CLINICAL INFORMATION: Z85.44 - Personal history of malignant neoplasm of other ... COMPARISON: September 24, 2019 DLP: 1010.[address] scans at [facility] use at least one of these dose optimization techniques: automated e xposure control; mA and/or kV adjustment per patient size (includes targeted exams where dose is matc hed to clinical indication); or iterative reconstruction. FINDINGS: Slightly thickened inflamed loop of small bowel in the pelvis with surrounding fluid. Find ings suspicious for infectious or inflammatory or radiation induced enteritis. Suggestion of slight t ethering of the margins may be due to adhesions. This can be followed up with oral contrast Prior cholecystectomy. Prior hysterectomy and appendectomy. LEFT breast prosthesis. Prior ventral abd ominal wall hernia repair. Mild diffuse fatty infiltration liver. Normal portal vein and splenic vein. Normal pancreatic parench ymal enhancement. Normal spleen. Small esophageal hiatal hernia. Lung bases are well aerated. Adrenal glands are normal. Normal renal parenchymal enhancement. No hydronephrosis. Normal caliber abdominal aorta. Celiac and SMA are patent. Small amount of free fluid in the cul-de-sac. A few sigmoid diverticuli. No evidence of acute diverti culitis. No periaortic or pelvic lymphadenopathy. No inguinal lymphadenopathy. Disc space narrowing L 2-L3 and L3-L4. CT/CT abdomen pelvis w con* [id number] IMPRESSION: 1. Mild diffuse fatty infiltration of the liver. Normal spleen. 2. Slightly thickened inflamed loop of small bowel in the pelvis with surround ing fluid. Findings suspicious for infectious or inflammatory or radiation stephen renetta enteritis. Suggestion of slight tethering of the margins may be due to adhe sions. This can be followed up with oral contrast 3. No hydronephrosis in either kidney. 4. Normal pancreatic parenchymal enhancement. 5. Small esophageal hiatal hernia. 6. Prior cholecystectomy. Prior hysterectomy and appendectomy. 7. Prior ventral abdominal wall hernia repair. No recurrent hernia..
[2022-03-16] MEDS: iohexol 350 mg/mL 100 mL Btl IV (16:42)
== END 2022-03-16 11:46 | disposition home or self-care (01) ==
PROVIDERS: PCP Family Medicine; Visit Provider Family Medicine
DX: R10.2 Pelvic and perineal pain (principal); R19.8 Other specified symptoms and signs involving the digestive system and abdomen; K76.0 Fatty (change of) liver, not elsewhere classified; K44.9 Diaphragmatic hernia without obstruction or gangrene; Z85.44 Personal history of malignant neoplasm of other female genital organs; Z90.49 Acquired absence of other specified parts of digestive tract; Z90.710 Acquired absence of both cervix and uterus; Z98.890 Other specified postprocedural states
CPT/HCPCS: 74177

== ENCOUNTER 2022-05-10 08:29 | Day surgery (SDC) | payer MEDICARE, SELFPAY ==
[2022-05-05 10:23] VITALS: BMI 29.2
[2022-05-10 08:53] VITALS: BP 135/85; PULSE 104; RESP 18; TEMP 36.3; O2SAT 98
[2022-05-10] MEDS: sodium chloride 0.9% 1,000 ML 30 ML IV (09:00)
--- NOTE | 2022-05-10 09:45 | P.ANESASSM_ITS ---
Pre-Anesthetic Assessment Height/Weight: Height 1.57 m Weight 72.575 kg Temp Pulse Resp BP Pulse Ox O2 Del Method 97.4 F L 104 H 18 135/85 98 05/10/22 08:53 05/10/22 08:53 05/10/22 08:53 05/10/22 08:53 05/10/22 08:53 05/10/22 08:53 Preop Diagnosis: Chronic constipation Operation Date: 05/10/22 10:15 Proposed Procedures p 37626 EGD 75019 Colon R19.8,R10.9(Not Applicable) - DO vicky Galindo Colonoscopy(Not Applicable) - Adam Leong DO Familial anesthetic complications: PONV Was Beta Naz taken within 24 hours: N/A Was Clonidine taken within 24 hours: N/A Last intake: Intake Last Liquid Date 05/09/22 Last Liquid Time 21:00 Last Solid Date 05/08/22 Last Solid Time 19:00 Social No alcohol and No tobacco Exam alert, oriented x 3, clear to auscultation bilaterally and regular rate & rhythm Airway Mallampati: Class II Dentition: full CV/HEM Hypertension GI Gastroesophageal Reflux Disease Metabolic B12 deficiency Neuropsych Transient Ischemic Attack Anesthetic Plan ASA status: 2 Anesthesia: MAC Risk of > 500 ml blood loss (7ml/kg in children): No Medications/Allergies Home Medications Medication Instructions Recorded Confirmed Last Taken Type sennosides 8.6 mg-docusate sodium 1 tab-cap PO DAILY 11/05/19 05/05/22 05/09/22 History 50 mg tablet (Senna-S) hydroxyzine HCl 25 mg tablet 25 mg PO BID PRN anxiety #30 tabs 03/02/22 05/05/22 05/09/22 Rx irbesartan 150 1 tab PO DAILY 90 days #90 tabs 03/02/22 05/05/22 05/09/22 Rx mg-hydrochlorothiazide 12.5 mg tablet famotidine 20 mg tablet 20 mg PO DAILY PRN indegestion 05/05/22 05/05/22 05/09/22 History ibuprofen 600 mg tablet 600 mg PO Q6H PRN Pain 05/05/22 05/05/22 05/09/22 History Allergies Allergy/AdvReac Type Severity Reaction Status Date / Time erythromycin base Allergy Mild ALGY-Rash Verified 05/05/22 10:15 Current Medications Generic Name Dose Route Start Last Admin Trade Name Freq PRN Reason Stop Dose Admin Sodium Chloride 1,000 mls @ 30 mls/hr 05/10/22 08:45 05/10/22 09:00 Sodium Chloride 0.9% IV 05/11/22 08:44 30 mls/hr .Q24H SARBJIT Administration PFSH Anesthesia Medical History (Updated 03/13/22 @ 10:03 by Adam Leong DO) GERD with esophagitis History of bilateral breast cancer History of cancer of vagina Hx of completed stroke Primary osteoarthritis of knees, bilateral Surgical History H/O breast surgery H/O: hysterectomy History of appendectomy History of colonoscopy History of esophagogastroduodenoscopy (EGD) History of total right knee replacement Right total knee arthroplasty utilizing the following components: The [employer] triathlon total knee system with a size 4 posterior stabilized right press- fit femoral component, a size 3 Tritanium tibial component, press-fit, with a size 3 x 11 mm posterior stabilized insert, and an asymmetric 29 x 9 mm patella Hx of cholecystectomy Family History Mother A-fib Hypertension Hyperlipidemia Sister Cancer Diabetes Stroke Grandmother Cancer Grandfather Cancer Father Hypertension Dementia Lung disease Family/Other Diabetes Brother Stroke Denies family history of CAD (coronary artery disease) Clotting disorder Psychiatric illness Chronic kidney disease (CKD) Suicide Anesthesia complication Bleeding disorder Family history of premature coronary artery disease Social History Smoking and tobacco status: never smoked Alcohol intake: never Current occupational status: employed Current occupation: Book keeper History of recent travel: No Current gender identity: Female Female Reproductive History Spontaneous abortions: No Data Anesthesia Cardiac Studies: No Data to Display
--- NOTE | 2022-05-10 10:09 | P.HP_ITS ---
Providers/Chief Complaint Primary Care Provider: Jeanette Alanis MD Chief Complaint: R19.8, R10.9 History of Present Illness Wendy Tineo is a 72 year old female here for EGD and colonoscopy Medications/Allergies Home Medications Medication Instructions Recorded Confirmed Last Taken Type sennosides 8.6 mg-docusate sodium 1 tab-cap PO DAILY 11/05/19 05/05/22 05/09/22 History 50 mg tablet (Senna-S) hydroxyzine HCl 25 mg tablet 25 mg PO BID PRN anxiety #30 tabs 03/02/22 05/05/22 05/09/22 Rx irbesartan 150 1 tab PO DAILY 90 days #90 tabs 03/02/22 05/05/22 05/09/22 Rx mg-hydrochlorothiazide 12.5 mg tablet famotidine 20 mg tablet 20 mg PO DAILY PRN indegestion 05/05/22 05/05/22 05/09/22 History ibuprofen 600 mg tablet 600 mg PO Q6H PRN Pain 05/05/22 05/05/22 05/09/22 History Allergies Allergy/AdvReac Type Severity Reaction Status Date / Time erythromycin base Allergy Mild ALGY-Rash Verified 05/05/22 10:15 PFSH Acute PFSH: Medical History (Updated 03/13/22 @ 10:03 by Adam Leong DO) GERD with esophagitis History of bilateral breast cancer History of cancer of vagina Hx of completed stroke Primary osteoarthritis of knees, bilateral Surgical History H/O breast surgery H/O: hysterectomy History of appendectomy History of colonoscopy History of esophagogastroduodenoscopy (EGD) History of total right knee replacement Right total knee arthroplasty utilizing the following components: The [employer] triathlon total knee system with a size 4 posterior stabilized right press- fit femoral component, a size 3 Tritanium tibial component, press-fit, with a size 3 x 11 mm posterior stabilized insert, and an asymmetric 29 x 9 mm patella Hx of cholecystectomy Family History Mother A-fib Hypertension Hyperlipidemia Sister Cancer Diabetes Stroke Grandmother Cancer Grandfather Cancer Father Hypertension Dementia Lung disease Family/Other Diabetes Brother Stroke Denies family history of CAD (coronary artery disease) Clotting disorder Psychiatric illness Chronic kidney disease (CKD) Suicide Anesthesia complication Bleeding disorder Family history of premature coronary artery disease Social History Smoking and tobacco status: never smoked Alcohol intake: never Current occupational status: employed Current occupation: Book keeper History of recent travel: No Current gender identity: Female Female Reproductive History: Spontaneous abortions: No Vitals/I&O/Wt Last Vital Signs Temp 97.4 F L 05/10/22 08:53 Pulse 104 H 05/10/22 08:53 Resp 18 05/10/22 08:53 BP 135/85 05/10/22 08:53 Pulse Ox 98 05/10/22 08:53 O2 Del Method 05/10/22 08:53 A&P Assessment and plan (1) Abdominal pain: (2) Irregular bowel habits: (3) GERD with esophagitis: Qualifiers: Esophagitis bleeding: without hemorrhage Qualified Code(s): K21.00 - Gastro-esophageal reflux disease with esophagitis, without bleeding Plan EGD with colonoscopy Attestations Medical Necessity Statement*: Home Coding Level of Care Code Acute Environmental Web Crawler for Chg Fwd Diagnoses Abdominal pain R10.9 Irregular bowel habits R19.8 GERD with esophagitis K21.00 Esophagitis bleeding: without hemorrhage
[2022-05-10 11:03] VITALS: BP 116/81; PULSE 93; RESP 16; TEMP 36.8; O2SAT 100
[2022-05-10 11:13] VITALS: BP 147/87; PULSE 88; RESP 18; O2SAT 98
--- NOTE | 2022-05-10 12:07 | ANE.PACU2 ---
Inpatient post-anesthesia follow up: Airway intact: Yes Vital signs: Temperature 98.3 F Pulse Rate 88 Respiratory Rate 18 Blood Pressure 147/87 Pulse Oximetry 98 Oxygen Delivery Me thod Room Air Oxygen Flow Rate 3 Fraction of Inspir ed Oxygen Hydration adequate: Yes Nausea and vomiting: No Pain level: 1 Mental status: Baseline
== END 2022-05-10 11:32 | disposition home or self-care (01) ==
PROVIDERS: PCP Family Medicine; Visit Provider Surgery
PROC: 0DJ08ZZ Inspection of Upper Intestinal Tract, Via Natural or Artificial Opening Endoscopic (ICD-10-PCS; CPT 43235; principal; 2022-05-10 10:15)
PROC: 0DJD8ZZ Inspection of Lower Intestinal Tract, Via Natural or Artificial Opening Endoscopic (ICD-10-PCS; CPT 45378; 2022-05-10 10:15)
DX: R10.9 Unspecified abdominal pain (principal); K57.30 Diverticulosis of large intestine without perforation or abscess without bleeding; R19.8 Other specified symptoms and signs involving the digestive system and abdomen; K21.00 Gastro-esophageal reflux disease with esophagitis, without bleeding; K21.9 Gastro-esophageal reflux disease without esophagitis; Z85.3 Personal history of malignant neoplasm of breast; M17.0 Bilateral primary osteoarthritis of knee; Z86.73 Personal history of transient ischemic attack (TIA), and cerebral infarction without residual deficits
CPT/HCPCS: 43235; 45380; 82274; 83630; 87493; 87506; 88305; J2704; J7030

== ENCOUNTER → 2022-05-25 16:33 | Outpatient (BNVA) | payer MEDICARE, SELFPAY | PROVIDERS: PCP Family Medicine; Visit Provider Surgery | DX: Z09 Encounter for follow-up examination after completed treatment for conditions other than malignant neoplasm (principal); R19.8 Other specified symptoms and signs involving the digestive system and abdomen | CPT/HCPCS: 99212 ==

== ENCOUNTER → 2023-06-07 10:57 | Outpatient (BNVA) | payer MEDICARE, SELFPAY | PROVIDERS: PCP Family Medicine; Visit Provider Specialist | DX: M17.0 Bilateral primary osteoarthritis of knee (principal); Z96.653 Presence of artificial knee joint, bilateral | CPT/HCPCS: 73560; 73565; 99213 ==

== ENCOUNTER → 2023-08-13 09:44 | Outpatient (BNVA) | payer MEDICARE, SELFPAY | PROVIDERS: PCP Family Medicine; Visit Provider Family Medicine | DX: I10 Essential (primary) hypertension (principal); F41.8 Other specified anxiety disorders; R53.83 Other fatigue; E53.8 Deficiency of other specified B group vitamins; Z13.220 Encounter for screening for lipoid disorders; Z13.6 Encounter for screening for cardiovascular disorders; K21.00 Gastro-esophageal reflux disease with esophagitis, without bleeding; R19.8 Other specified symptoms and signs involving the digestive system and abdomen; Z96.651 Presence of right artificial knee joint | CPT/HCPCS: 80053; 80061; 82607 ==

== ENCOUNTER → 2023-10-10 10:27 | Outpatient (BNVA) | payer MEDICARE, SELFPAY | PROVIDERS: PCP Family Medicine; Visit Provider Nurse Practitioner Family | DX: L03.90 Cellulitis, unspecified (principal) | CPT/HCPCS: 87070; 87077; 87184; 87205 ==

== ENCOUNTER → 2024-01-04 07:36 | Outpatient (BNVA) | payer MEDICARE, SELFPAY | PROVIDERS: PCP Family Medicine; Visit Provider Surgery | DX: L02.211 Cutaneous abscess of abdominal wall (principal) | CPT/HCPCS: 99214 ==

== ENCOUNTER → 2024-01-08 11:43 | Outpatient (BNVA) | payer MEDICARE, SELFPAY | PROVIDERS: PCP Family Medicine; Visit Provider Student in an Organized Health Care Education/Training Program | DX: L02.91 Cutaneous abscess, unspecified (principal) | CPT/HCPCS: 99215 ==

== ENCOUNTER 2024-01-15 07:55 | Outpatient (CLI) | payer MEDICARE, SELFPAY ==
--- NOTE | 2024-01-15 08:15 | CT_ITS ---
WS: [id number] Examination: CT abdomen pelvis w con* [id number] Reason for Exam: Recurrent abscess Date: January 15, 2024 Comparison: 03/16/2022 DLP: 306.[address] scans at [facility] use at least one of these dose optimization techniques: automated e xposure control; mA and/or kV adjustment per patient size (includes targeted exams where dose is matc hed to clinical indication); or iterative reconstruction. Findings: The heart is not enlarged. There is no pleural effusion. Again the left breast implant is noted. The liver is normal in size and appearance. The gallbladder has been removed. The portal vein is moeller nt. The spleen is unremarkable. There is no focal adrenal mass. The kidneys are well-perfused. There is no stone or hydronephrosis.. No mass is seen. The pancreas pancreas is unremarkable. Lumbar degenerative changes are present, dominant at L3-4 There are atherosclerotic changes of the aorta. There is dominant right renal artery calcification. There is no small bowel obstruction. Again abnormal appearing loops of small bowel in the pelvis are identified, there our mildly prominent fluid-filled loops of small bowel with 1 thick walled loop of small bowel in the pelvis. I suspect this is the same abnormal loop of bowel noted on the previously study. Numerous associated diverticuli of this loop of small bowel and other loops of small bowel are noted. There is a duodenal diverticulum again noted. There is a large stool burden. . There is no free air. There is minimal free fluid in the pelvis. No drainable abscess is seen. Again previous surgical changes to the anterior abdominal wall is identified. Small bowel abuts the s urgical site and is unchanged. No adenopathy is appreciated. CT/CT abdomen pelvis w con* [id number] Impression: There is no evidence of small bowel obstruction. There are some abnormal appear ing loops of small bowel in the pelvis. There is a small amount of free fluid i n the pelvis.. There is a mildly thick walled loop of small bowel with numerous associated diverticuli. I suspect this represents the previously noted abnorma l loop of small bowel. No drainable abscess is identified. These findings may b e related to infectious, inflammatory, and/or radiation-induced enteritis. The small bowel mucosa is not well detailed on this study, again a follow-up study with oral contrast may be of benefit. GI consultation is recommended..
[2024-01-15 08:31] LABS: Blood Urea Nitrogen 13 mg/dL (8-23)
[2024-01-15] MEDS: iohexol 350 mg/mL 500 mL Btl (per mL) IV (08:42)
== END 2024-01-15 07:56 | disposition home or self-care (01) ==
LOC: RAD 07:59
PROVIDERS: Radiology Neuroradiology; PCP Family Medicine; Visit Provider Student in an Organized Health Care Education/Training Program
DX: R93.3 Abnormal findings on diagnostic imaging of other parts of digestive tract (principal); M51.36 Other intervertebral disc degeneration, lumbar region; I70.0 Atherosclerosis of aorta; Z90.49 Acquired absence of other specified parts of digestive tract
CPT/HCPCS: 74177; 82565; 84520; 99215

== ENCOUNTER 2024-01-18 06:00 | Outpatient (CLI) | payer MEDICARE, SELFPAY | END 2024-01-18 06:01 | disposition home or self-care (01) | LOC: RAD 02-18 09:18 | PROVIDERS: PCP Family Medicine; Visit Provider Nurse Practitioner Family | DX: L02.211 Cutaneous abscess of abdominal wall (principal); R10.9 Unspecified abdominal pain | CPT/HCPCS: 99214 ==

== ENCOUNTER → 2024-08-27 09:48 | Outpatient (BNVA) | payer MEDICARE, SELFPAY | PROVIDERS: PCP Family Medicine; Visit Provider Family Medicine | DX: I10 Essential (primary) hypertension (principal); R53.83 Other fatigue; E53.8 Deficiency of other specified B group vitamins | CPT/HCPCS: 80053; 80061; 82607 ==

== ENCOUNTER 2025-04-27 13:40 | Outpatient (CLI) | payer MEDICARE, OTHER, SELFPAY ==
--- NOTE | 2025-04-27 14:00 | XR_ITS ---
WS: [id number] DEXA (DUAL ENERGY X-RAY ABSORPTIOMETRY) Bone mineral density was performed using a [employer] machine. HISTORY: N95.9 - Unspecified menopausal and perimenopausal disorder COMPARISON: None available. Lumbar spine BMD (L1-L4): 1.181 g/cm2 T score: 0.0 Z score: 1.5 Total hip BMD: Left: 0.873 g/cm2. T score: -1.1 Z score: 0.4 Right: 0.867 g/cm2. T score: -1.1 Z score: 0.4 10 year probability of a major osteoporotic fracture is 11.6%. XR/XR DEXA axial skeleton* [id number] IMPRESSION: OSTEOPENIA based upon the WHO classification for females.
== END 2025-04-27 13:41 | disposition home or self-care (01) ==
LOC: RAD 13:40
PROVIDERS: PCP Family Medicine; Visit Provider Family Medicine
DX: Z13.820 Encounter for screening for osteoporosis (principal); N95.9 Unspecified menopausal and perimenopausal disorder; Z78.0 Asymptomatic menopausal state; M85.88 Other specified disorders of bone density and structure, other site
CPT/HCPCS: 77080